=== PATIENT | female | born 1930 | race Caucasian/White ===

== ENCOUNTER → 2016-10-24 | Outpatient (CLI) | payer OTHER, MEDICARE ==
[2016-10-24 17:15] LABS: BUN/CREATININE RATIO 32.72 (6-20); CALCIUM 10.2 mg/dL (8.7-10.7); CREATININE 1.1 mg/dL (0.50-1.20); POTASSIUM 4.2 meq/L (3.8-5.2)
== END ==
LOC: LAB 09:29
DX: I10 Essential (primary) hypertension (principal)
CPT/HCPCS: 80048

== ENCOUNTER 2016-10-30 12:11 | Emergency (ER) | payer OTHER, MEDICARE ==
[2016-10-30] MEDS ORDERED: Sodium Chloride 0.9% 1,000 ML PRIMARY IV ONE (12:29)
[2016-10-30] MEDS ORDERED: NORMAL SALINE 10 ML SYRINGE FLUSH IVP PRN (12:29)
--- NOTE | 2016-10-30 12:45 | EKG ---
[address] [address] Measurements Intervals [place] Rate: 63 P: 107 W[place]: 169 QRS: 219 QRSD: 84 T: 79 QT: 445 QTc: 453 Interpretive Statements SINUS RHYTHM INDETERMINATE AXIS LOW QRS VOLTAGE IN EXTREMITY LEADS [QRS DEFLECTION < 0.5 mV IN LIMB LEADS] LEFT POSTERIOR FASCICULAR BLOCK [QRS AXIS > 109, INFERIOR Q] [email or web address]
[2016-10-30 12:46] LABS: BASOPHILS # (AUTO) 0.02 10*3/UL; BASOPHILS % (AUTO) 0.2 % (0-1); EOSINOPHILS % (AUTO) 0.7 % (0-8); HEMATOCRIT 44.3 % (37.0-47.0); HEMOGLOBIN 14.7 g/dL (12.0-16.0); IMM GRAN % (AUTO) 0.2 % (0-5); IMM GRAN# (AUTO) 0.02 10*3/UL; LYMPHOCYTES # (AUTO) 2.29 10*3/uL; LYMPHOCYTES % (AUTO) 21.1 % (10-50); MEAN CORPUSCULAR HEMOGLOBIN 28.7 PG (27-31); MEAN CORPUSCULAR HGB CONC 33.2 g/dL (33-37); MEAN PLATELET VOLUME 10.2 FL (7.4-12.2); MONOCYTES # (AUTO) 0.99 10*3/UL (0.3-0.8); MONOCYTES % (AUTO) 9.1 % (5-15); NEUTROPHILS # (AUTO) 7.43 10*3/UL; NEUTROPHILS % (AUTO) 68.7 % (50-80); RDW COEFFICIENT OF VARIATION 14.1 % (11.5-14.5); RED BLOOD COUNT 5.12 10^6/uL (4.20-5.40); WHITE BLOOD COUNT 10.83 10^3/uL (4.8-10.8)
[2016-10-30 12:53] LABS: ASPARTATE AMINO TRANSFERASE 74 IU/L (8-39); BILIRUBIN,TOTAL 0.7 mg/dL (0.3-1.2); BLOOD UREA NITROGEN 36 mg/dL (7-22); BUN/CREATININE RATIO 27.69 (6-20); CALCIUM 10.1 mg/dL (8.7-10.7); CHLORIDE 93 meq/L (98-112); CREATININE 1.3 mg/dL (0.50-1.20); GLUCOSE 135 mg/dL (78-110); PLATELET MORPHOLOGY COMMENT NORMAL MORPHOLOGY (NORM); POTASSIUM 4.5 meq/L (3.8-5.2); SODIUM 137 meq/L (135-145); TOTAL PROTEIN 7.4 g/dL (6.1-8.0)
[2016-10-30 13:04] LABS: LACTATE 0.8 MMOL/L (0.70-2.10); MAGNESIUM 1.9 mg/dL (1.6-2.4)
[2016-10-30 13:06] LABS: C-REACTIVE PROTEIN < 0.5 mg/dL (0.0-0.9)
[2016-10-30 13:13] VITALS: TEMP 97
--- NOTE | 2016-10-30 14:02 | PDOC ---
General Adult HPI - General Chief Complaint: General Medical Stated Complaint: "CHECKED OUT FOR MINUTE" Date Seen by Provider: 10/30/16 Time Seen by Provider: 12:25 Source: POSITIVE: Patient Exam Limitations: POSITIVE: No limitations Nurse's Notes Reviewed & Considered: Yes - History of Present Illness Initial Comment: The patient is an 86-year-old female who presents to the emergency department with lightheadedness. She apparently was at [facility] when she became very lightheaded. Passerby stated that she appeared to be awake with her eyes open however she would not respond. She did not pass out completely. Subsequently EMS was called. On arrival ultrasound specialist found the patient to be awake however when they tried to stand her up her blood pressure dropped into the 50s and she became very lightheaded. An IV was established and a fluid bolus was started in route. On arrival the patient states she is feeling better. She still feels a little bit weak. She denies any headache, change in vision, numbness or weakness in her extremities other than generalized weakness in her legs. She does not have any chest pain or shortness of breath. She does report that she has been feeling lightheaded recently especially with standing. She is currently being treated with fluconazole for treatment of thrush. In addition review of her chart reveals that her hydrochlorothiazide had been discontinued secondary to hyponatremia. She subsequently had developed leg edema and was started on Lasix and potassium. The edema has improved significantly. She did have blood work done approximately a week ago. She denies any fevers or chills , nausea vomiting, abdominal pain, urinary symptoms or any other associated complaints. Have you received a tetanus shot in the past 10 years?: Unknown - Patient Home Medications Home Medications: Home Medications Aspirin 81 mg ORAL QD #30 tab 06/29/12 Multivitamin [Multivitamins] 2 each PO DAILY #60 tab 02/03/14 Cyanocobalamin (Vitamin B-12) [B-12] 2 tab PO DAILY #180 tab 01/03/15 Phenazopyridine HCl [Azo] 2 tab PO QD #60 tab 08/01/15 Enalapril Maleate 1 unit PO BID #180 tab 09/18/15 Promethazine HCl 1 unit PO Q4-6H #25 tab 11/20/15 Carvedilol 1 unit ORAL BID #180 tab 01/01/16 Furosemide [Lasix] 1 tab PO QD #30 tab 10/10/16 Potassium Chloride 1 cap PO QD #30 cap 10/10/16 Cholecalciferol (Vitamin D3) [Vitamin D3] 1 cap PO QD #30 cap 10/30/16 Esomeprazole Magnesium [Nexium] 20 mg PO DAILY 10/30/16 Fluticasone/Salmeterol [Advair Hfa] 2 puff INH BID #3 puff 10/30/16 - Patient Allergies Allergies/Adverse Reactions: Allergies Allergy/AdvReac Type Severity Reaction Status Date / Time naproxen sodium [From Aleve] Allergy Severe Anaphylaxis Verified 10/30/16 12:27 Penicillins Allergy Severe Anaphylaxis Verified 10/30/16 12:27 sulfamethoxazole AdvReac Intermediate YEAST Verified 10/30/16 12:27 [From ] INFECTION trimethoprim [From ] AdvReac Intermediate YEAST Verified 10/30/16 12:27 INFECTION Past Medical History - heen HEENT History: Denies History Cardiovascular History: Hypertension, Syncope, Other (please comment) Additional Cardiovasular History: HX HYPONATREMIA. DENIES CHF BUT TAKES LASIX FOR EDEMA Respiratory History: Other (please comment) Additional Respiratory History: TOBACCO USE Gastrointestinal History: Other (please comment) Additional Gastrointestinal History: APPY Genitourinary History: Denies History Endocrine History: Denies History Musculoskeletal History: Denies History, Other (please comment) Prosthesis or Implant: No Additional Musculoskeletal History: BACK SURGERY Neurological History: Denies History Blood Disorders: Denies History Psychiatric History: Denies History Cancer History: Denies History In Past Year Been Physically Harmed or Verbally Threatened: No History of MDRO: No Tobacco Use: Current Every Day Smoker Alcohol Use: None Substance Use Type: None Previous Surgical History: Yes Type / Date of Surgery: APPY. BACK Anesthesia Reactions: No Significant Family History: No pertinent family hx Past Medical History Reviewed: Reviewed - No Changes ROS - Limitations ROS Limitations: No Limitations Constitution: DENIES: Chills, Fever Cardiovascular: DENIES: Chest Pain, Heart Racing, Heart Palpitations Respiratory: REPORTS: Denies Resp Symptoms Neurological: REPORTS: Dizziness. DENIES: Headache, Numbness, Weakness Gastrointestinal: REPORTS: Nausea. DENIES: Abdominal Pain, Vomitting, Diarrhea Endocrine: REPORTS: Fatigue Musculoskeletal: REPORTS: Denies MS Symptoms Genitourinary: REPORTS: Denies Symptoms Eyes: REPORTS: Denies Symptoms ENT: REPORTS: Denies Symptoms Skin: DENIES: Rash General Adult Exam - General Appearance General Appearance: POSITIVE: Alert, Cooperative, No Acute Distress - HEENT HEENT: POSITIVE: Head Inspection Nml, Eyes Inspection Nml, Ears Inspection Nml, Pharynx Inspect. Nml - Neck Neck: POSITIVE: Normal Inspection. 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 As Tested, Motor Normal, Sensation Normal, Other (No focal neurologic deficits) General Adult Progress - Results Reviewed by me Lab Results Reviewed: Yes Lab Results:: Laboratory Results 10/30/16 10/30/16 Range/Units 12:00 12:11 WBC 10.83 H (4.8-10.8) 10^3/uL RBC 5.12 (4.20-5.40) 10^6/uL Hgb 14.7 (12.0-16.0) g/dL Hct 44.3 (37.0-47.0) % MCV 86.5 (81-99) FL MCH 28.7 (27-31) PG MCHC 33.2 (33-37) g/dL RDW Std Deviation 44.2 (39-50) fL RDW Coeff of Maria M 14.1 (11.5-14.5) % Plt Count 298 (140-350) 10*3/uL MPV 10.2 (7.4-12.2) FL Immature Gran % (Auto) 0.2 (0-5) % Neut % (Auto) 68.7 (50-80) % Lymph % (Auto) 21.1 (10-50) % [place] % (Auto) 9.1 (5-15) % Eos % (Auto) 0.7 (0-8) % Baso % (Auto) 0.2 (0-1) % Immature Gran # (Auto) 0.02 10*3/UL Neut # (Auto) 7.43 10*3/UL Lymph # (Auto) 2.29 10*3/uL [place] # (Auto) 0.99 H (0.3-0.8) 10*3/UL Eos # (Auto) 0.08 10*3/UL Baso # (Auto) 0.02 10*3/UL WBC Morphology Comment Normal morphology (NORM) Plt Morphology Comment Normal morphology (NORM) RBC Morph Comment Normal morphology (NORM) D-Dimer 0.36 (0.00-0.59) mg/L Sodium 137 (135-145) meq/L Potassium 4.5 (3.8-5.2) meq/L Chloride 93 L (98-112) meq/L Carbon Dioxide 30 (23-33) meq/L Anion Gap 14 (5-20) BUN 36 H (7-22) mg/dL Creatinine 1.3 H (0.50-1.20) mg/dL 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 BUN/Creatinine Ratio 27.69 H (6-20) Glucose 135 H (78-110) mg/dL Calculated Osmolality 293.0 H (267-292) mOsm/kg Lactic Acid 0.8 (0.70-2.10) MMOL/L Calcium 10.1 (8.7-10.7) mg/dL Magnesium 1.9 (1.6-2.4) mg/dL Total Bilirubin 0.7 (0.3-1.2) mg/dL AST 74 H (8-39) IU/L ALT 32 (9-52) IU/L Alkaline Phosphatase 72 (38-126) IU/L Troponin I < 0.012 (< 0.040) ng/mL C-Reactive Protein < 0.5 (0.0-0.9) mg/dL Total Protein 7.4 (6.1-8.0) g/dL Albumin 4.5 (3.5-4.8) g/dL Globulin 2.9 (2.50-4.10) g/dL Albumin/Globulin Ratio 1.50 (1.3-2.0) mg/g EKG Interpreted/Reviewed By Me:: Yes EKG Interpretation:: POSITIVE: Normal Sinus Rhythm, Normal Rate, Normal Intervals, Other (No acute ST segment or T-wave changes.) - Patient's Progress MDM / ED Course: Orthostatic vital signs were checked on arrival to the ER after the patient had received approximately 200 mL of normal saline. She continues to be orthostatic and her blood pressure dropped from the 130s down to the 80s systolic. She did not really have any significant change in pulse although she is on a beta dariana. After administration of 1 L of normal saline the patient was feeling better. Repeat orthostatics revealed no drop in systolic blood pressure and actually it went up slightly. She states that she still feels a little bit weak however overall feels much better. The remainder of her workup is essentially unremarkable except for evidence of dehydration with increased BUN/creatinine. Her electrolytes are otherwise normal. At this point it seems most likely that she may have become hypovolemic in part because of the recent addition of Lasix. She states that the edema in her legs has improved. She was advised to discontinue the Lasix as well as the potassium for now. She is advised to take Lasix in combination with potassium only if she develops increased leg edema as needed. She was advised return to the emergency room if she developed any further lightheadedness, any worsening or change in symptoms. She'll follow-up with primary care in 7-10 days. - Consult Counseled: POSITIVE: Patient, Family, RE: Lab Results, RE: DX, RE: Need for F/U Patient Care Time - Estimated PCT Patient Care Time (In Minutes): 30 Vital Signs - Recent Vital Signs Vital Signs: Vital Signs (Last 8 hours) Temp Pulse Pulse Pulse Pulse Resp BP 10/30/16 13:49 66 82 77 116/57 10/30/16 12:45 66 16 10/30/16 12:25 70 65 77 137/72 10/30/16 12:20 97 F 69 18 BP BP BP Pulse Ox 10/30/16 13:49 120/70 127/63 10/30/16 12:45 123/65 94 10/30/16 12:25 114/55 87/58 10/30/16 12:20 116/56 94 - VS Reviewed Vital Signs Reviewed: Yes Discharge Clinical Impression: Hypovolemia, Orthostatic hypotension Condition: Stable Patient Instructions Given at Discharge: Dehydration (ED), Near Syncope (ED) Additional Instructions: The lightheadedness and nearly passing out is likely related to being dehydrated. This is likely at least partially caused I the Lasix which is a water pill. Your blood pressure is significantly improved after administration of fluids. Would recommend rest and hydration today. You should discontinue the Lasix and potassium and take this combination only as needed if you develop swelling in your legs. Recommend returning to the emergency room if he develops further lightheadedness or passing out, chest pain, any worsening or change in symptoms. Recommend follow-up with primary care in 7-10 days. Follow Up With: NONE,NONE [Primary Care Provider] -
[2016-10-30 15:09] VITALS: RESP 16
== END 2016-10-30 14:15 | disposition home or self-care (01) ==
LOC: ER 12:11
DX: E86.1 Hypovolemia (principal); I95.1 Orthostatic hypotension; R42 Dizziness and giddiness; R11.0 Nausea
CPT/HCPCS: 80053; 82948; 83605; 83735; 84484; 85025; 85379; 86140; 93005; 93010; 96360; 96361; 99283

== ENCOUNTER → 2016-11-07 | Outpatient (CLI) | payer OTHER, MEDICARE | LOC: MMPC 11:11 | DX: I95.1 Orthostatic hypotension (principal); J44.9 Chronic obstructive pulmonary disease, unspecified; E55.9 Vitamin D deficiency, unspecified; I10 Essential (primary) hypertension; K21.9 Gastro-esophageal reflux disease without esophagitis; F17.219 Nicotine dependence, cigarettes, with unspecified nicotine-induced disorders | CPT/HCPCS: 99213; G0463 ==

== ENCOUNTER → 2017-01-01 | Outpatient (CLI) | payer OTHER, MEDICARE | LOC: MMPC 09:00 | DX: I95.1 Orthostatic hypotension (principal); J44.9 Chronic obstructive pulmonary disease, unspecified; F17.219 Nicotine dependence, cigarettes, with unspecified nicotine-induced disorders; I10 Essential (primary) hypertension; E55.9 Vitamin D deficiency, unspecified; R49.0 Dysphonia | CPT/HCPCS: 99213; G0463 ==

== ENCOUNTER → 2017-02-12 | Outpatient (CLI) | payer OTHER, MEDICARE | LOC: SLEEP LAB 19:57 | DX: G47.33 Obstructive sleep apnea (adult) (pediatric) (principal); G47.34 Idiopathic sleep related nonobstructive alveolar hypoventilation | CPT/HCPCS: 95811 ==

== ENCOUNTER → 2017-03-20 | Outpatient (CLI) | payer OTHER, MEDICARE ==
--- NOTE | 2017-03-20 14:57 | DI ---
XR CXR 2VW PA/LAT,03/20/2017 1:36 PM: Clinical History: Chronic obstructive pulmonary disease. Previous Exam: None at this facility. Findings: PA and lateral views of the chest are obtained, and demonstrate increased AP dimension and flattening of hemidiaphragms bilaterally without infiltrate nor effusion. Skeletal structures and the cardiomed iastinum are unremarkable. There is gentle levoscoliosis of lumbar spine at the thoracic lumbar junct ion. There is no infiltrate nor effusion. Impression: Diffuse COPD otherwise unremarkable.
[2017-03-20 15:00] LABS: BASOPHILS # (AUTO) 0.01 10*3/UL; BASOPHILS % (AUTO) 0.1 % (0-1); EOSINOPHILS # (AUTO) 0.03 10*3/UL; EOSINOPHILS % (AUTO) 0.4 % (0-8); HEMATOCRIT 42.4 % (37.0-47.0); LYMPHOCYTES # (AUTO) 1.26 10*3/uL; MEAN CORPUSCULAR HEMOGLOBIN 27.9 PG (27-31); MEAN CORPUSCULAR VOLUME 84.6 FL (81-99); MEAN PLATELET VOLUME 9.7 FL (7.4-12.2); MONOCYTES # (AUTO) 0.77 10*3/UL (0.3-0.8); MONOCYTES % (AUTO) 9.4 % (5-15); NEUTROPHILS # (AUTO) 6.15 10*3/UL; NEUTROPHILS % (AUTO) 74.7 % (50-80); PLATELET MORPHOLOGY COMMENT NORMAL MORPHOLOGY (NORM); RBC MORPHOLOGY COMMENT NORMAL MORPHOLOGY (NORM); RED BLOOD COUNT 5.01 10^6/uL (4.20-5.40); WBC MORPHOLOGY COMMENT NORMAL MORPHOLOGY (NORM)
[2017-03-20 18:26] LABS: BUN/CREATININE RATIO 23.33 (6-20); CALCIUM 9.3 mg/dL (8.7-10.7); SERUM ALBUMIN 3.5 g/dL (3.5-4.8)
== END ==
LOC: MOB RAD 13:58
DX: I10 Essential (primary) hypertension (principal); J44.9 Chronic obstructive pulmonary disease, unspecified; R53.1 Weakness; R53.83 Other fatigue; F17.200 Nicotine dependence, unspecified, uncomplicated
CPT/HCPCS: 36415; 71020; 80053; 85025

== ENCOUNTER → 2017-03-21 | Outpatient (CLI) | payer OTHER, MEDICARE ==
[2017-03-21 13:05] LABS: BILIRUBIN,URINE SMALL (NEG); CLARITY,URINE Slightly Cloudy (CLEAR); COLOR,URINE YELLOW; GLUCOSE, URINE (UA) NEGATIVE (NEG); NITRATE,URINE NEGATIVE (NEG); OCCULT BLOOD,URINE NEGATIVE (NEG); PH,URINE 5.5 (5.0-8.5); PROTEIN,URINE 30 mg/dl (NEG)
[2017-03-21 13:13] LABS: RENAL EPITHELIAL CELLS,URINE RARE; SQUAMOUS EPITHELIAL CELL,UR RARE; URINE SAMPLE TYPE CLEAN CATCH URINE
[2017-03-21 13:14] LABS: URINE CRYSTALS RARE
== END ==
LOC: LAB 11:40
DX: R53.83 Other fatigue (principal); I10 Essential (primary) hypertension; F17.200 Nicotine dependence, unspecified, uncomplicated
CPT/HCPCS: 81001

== ENCOUNTER → 2017-03-26 | Outpatient (CLI) | payer OTHER, MEDICARE ==
--- NOTE | 2017-03-27 00:02 | DI ---
CT HEAD W/O CONTRAST,03/26/2017 2:10 PM: Clinical History: Weakness. Previous Exam: July 23, 2014 Findings: Multiple helically acquired CT images are obtained through the brain without contrast, and demonstrat e a large hypodense area within the right frontal lobe. There is increased density within this hypode nsity centrally. There is some mild adjacent white matter edema as well. Skeletal structures are unremarkable. The orbits and paranasal sinuses are unremarkable. Impression: Large hypodensity within the right frontal lobe with central poorly circumscribed hyperdensity. This is worrisome for neoplasia and surrounding edema. This could also represent encephalomalacia, or Recommend MRI brain with and without contrast for further evaluation.
== END ==
LOC: CT 14:06
DX: R53.1 Weakness (principal); R53.81 Other malaise; F17.200 Nicotine dependence, unspecified, uncomplicated
CPT/HCPCS: 70450

== ENCOUNTER → 2017-03-27 | Outpatient (CLI) | payer OTHER, MEDICARE | LOC: MMPC 11:11 | DX: R90.0 Intracranial space-occupying lesion found on diagnostic imaging of central nervous system (principal); R49.0 Dysphonia; I10 Essential (primary) hypertension; J44.9 Chronic obstructive pulmonary disease, unspecified; K21.9 Gastro-esophageal reflux disease without esophagitis; E55.9 Vitamin D deficiency, unspecified | CPT/HCPCS: 99212; G0463 ==

== ENCOUNTER 2017-04-03 11:42 | Emergency (ER) | payer OTHER, MEDICARE ==
--- NOTE | 2017-04-03 12:04 | PDOC ---
Seizure HPI - General Chief Complaint: General Medical Stated Complaint: LETHARGY, UNRESPONSIVE EPISODES Date Seen by Provider: 04/03/17 Time Seen by Provider: 11:59 Source: POSITIVE: Patient, Other (Daughter) Exam Limitations: POSITIVE: Clinical condition Nurse's Notes Reviewed & Considered: Yes - History of Present Illness Initial Comments: This elderly 87-year-old female comes in today with an episode of unresponsiveness. Patient had an MRI done earlier today and received a milligram of Ativan prior to the procedure. This was approximately 3 hours ago. 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 She has had previous episodes over the last 2 weeks of becoming unresponsive and drooling. sHe presently appears postictal. Review of systems is unavailable because the patient's postictal state. Body Location Affected: REPORTS: Head Timing: REPORTS: Abrupt Duration: 1/2 hour Severity: Severe Quality: REPORTS: Other (Unresponsiveness) Seizure Began at (time): 11:45 Witnessed Seizure?: Yes Preceding Symptoms/Context (specify in comments): REPORTS: None Character of Seizure(s): REPORTS: Lost Consciousness, Completely Unresponsive Post-ictal Symptoms: REPORTS: Other (Global weakness, confusion, fatigue.) Recently seen/treated/hospitalized: Yes Any Prior Injuries Related to Current Complaint?: No - Patient Home Medications Home Medications: Home Medications Aspirin 81 mg ORAL QD #30 tab 06/29/12 Multivitamin [Multivitamins] 2 each PO DAILY #60 tab 02/03/14 Cyanocobalamin (Vitamin B-12) [B-12] 2 tab PO DAILY #180 tab 01/03/15 Promethazine HCl 1 unit PO Q4-6H #25 tab 11/20/15 Cholecalciferol (Vitamin D3) [Vitamin D3] 1 cap PO QD #30 cap 10/30/16 Enalapril Maleate 1 tab PO BID #180 tab 11/11/16 Carvedilol 1 tab PO BID #180 tab 01/10/17 Fluticasone/Salmeterol [Advair Hfa] 2 puff INH BID #1 puff 03/20/17 Tiotropium [place] [Spiriva] 18 mcg IH DAILY 04/03/17 - Patient Allergies Allergies/Adverse Reactions: Allergies Allergy/AdvReac Type Severity Reaction Status Date / Time naproxen sodium [From Aleve] Allergy Severe Anaphylaxis Verified 04/03/17 12:15 Penicillins Allergy Severe Anaphylaxis Verified 04/03/17 12:15 sulfamethoxazole AdvReac Intermediate YEAST Verified 04/03/17 12:15 [From ] INFECTION trimethoprim [From ] AdvReac Intermediate YEAST Verified 04/03/17 12:15 INFECTION Past Medical History - heen HEENT History: Denies History Cardiovascular History: Hypertension, Syncope, Other (please comment) Additional Cardiovasular History: HX HYPONATREMIA. DENIES CHF BUT TAKES LASIX FOR EDEMA Respiratory History: Other (please comment) Additional Respiratory History: TOBACCO USE Gastrointestinal History: Other (please comment) Additional Gastrointestinal History: APPY Genitourinary History: Denies History Endocrine History: Denies History Musculoskeletal History: Denies History, Other (please comment) Prosthesis or Implant: No Additional Musculoskeletal History: BACK SURGERY Neurological History: Denies History Blood Disorders: Denies History Psychiatric History: Denies History Cancer History: Denies History History of MDRO: No Alcohol Use: None Substance Use Type: None Previous Surgical History: Yes Type / Date of Surgery: APPY. BACK Anesthesia Reactions: No Significant Family History: No pertinent family hx ROS - Limitations ROS Limitations: Clinical Condition (Further review of systems is unavailable because the patient's unresponsive postictal state.) Seizure Exam - General Appearance General Appearance: POSITIVE: No Acute Distress, Lethargic, Confused (post-ictal ) - HEENT HEENT: POSITIVE: Head Inspection Nml, Eyes Inspection Nml, Ears Inspection Nml, Nose Inspection Nml, Oral/Dental Inspect. Nml, Pharynx Inspect. Nml, PERRL, EOMI - Pupil Size Pupil Size: 4 mm: Bilateral - Neck Neck: POSITIVE: Non Tender, Neck Supple, Trachea Midline, Nexus Criteria Negative - Respiratory Respiratory: POSITIVE: Chest Non Tender, No Ecchymosis, Breath Sounds Normal, No Respiratory Distress - Cardiovascular Cardiovascular: POSITIVE: Regular Rate and Rhythm, Heart Sounds Normal, No Murmur, No Gallop, No JVD - Abdomen Abdomen: Soft: (All Quadrants), Normal Bowel Sounds: (All Quadrants), Denies Tenderness: (All Quadrants), No Splenomegaly: (All Quadrants), No Hepatomegaly: (All Quadrants), No Guarding: (All Quadrants), No Rebound: (All Quadrants), No Palpable Pulse: (All Quadrants), No Palpabale Mass: (All Quadrants), No Distention: (All Quadrants), No Rigidity: (All Quadrants) - Skin Skin: POSITIVE: Intact, Normal For Race, Warm, Dry, No Rash - Extremities Extremity: Non-Tender: (All Extremities), Normal ROM: (All Extremities), Normal Inspection: (All Extremities) - Observed Seizure Activity Observed Seizure Activity in ED: POSITIVE: Generalized - Neuro / Psych Higher Functions: POSITIVE: Confused, Disoriented to Place, Disoriented to Time , Slurred Speach Cranial Nerves: POSITIVE: Normal As Tested, No Evidence of Acute CVA Cerebellar: POSITIVE: Normal As Tested Sensorimotor: POSITIVE: No Motor Deficits, No Sensory Deficits, Reflexes Normal , Symmetrical, Weakness Reflexes: Patellar (R): 3+, Patellar (L): 3+, Radial (R): 3+, Radial (L): 3+ Seizure Progress - Results Reviewed by me Xrays/CTs/US Reviewed by me: Yes Discussed with Radiologist: Yes Lab Results Reviewed: Yes Lab Results:: Laboratory Results 04/03/17 04/03/17 04/03/17 Range/Units 12:00 12:18 12:30 WBC 11.64 H (4.8-10.8) 10^3/uL RBC 4.96 (4.20-5.40) 10^6/uL Hgb 13.9 (12.0-16.0) g/dL Hct 41.9 (37.0-47.0) % MCV 84.5 (81-99) FL MCH 28.0 (27-31) PG MCHC 33.2 (33-37) g/dL RDW Std Deviation 43.6 (39-50) fL RDW Coeff of Maria M 14.3 (11.5-14.5) % Plt Count 264 (140-350) 10*3/uL MPV 9.0 (7.4-12.2) FL Immature Gran % (Auto) 0.4 (0-5) % Neut % (Auto) 79.3 (50-80) % Lymph % (Auto) 11.3 (10-50) % [place] % (Auto) 7.7 (5-15) % Eos % (Auto) 1.0 (0-8) % Baso % (Auto) 0.3 (0-1) % Immature Gran # (Auto) 0.05 10*3/UL Neut # (Auto) 9.23 10*3/UL Lymph # (Auto) 1.31 10*3/uL [place] # (Auto) 0.90 H (0.3-0.8) 10*3/UL Eos # (Auto) 0.12 10*3/UL Baso # (Auto) 0.03 10*3/UL WBC Morphology Comment Normal morphology (NORM) Plt Morphology Comment Normal morphology (NORM) RBC Morph Comment Normal morphology (NORM) VBG pH 7.44 H (7.32-7.42) VBG pCO2 41 L (45-55) mmHg VBG HCO3 28 H (22-26) mmol/L VBG Base Excess 4 H (-2-2) MMOL/L Sodium 132 L (135-145) meq/L Potassium 3.1 L (3.8-5.2) meq/L Chloride 93 L (98-112) meq/L Carbon Dioxide 29 (23-33) meq/L Anion Gap 10 (5-20) BUN 24 H (7-22) mg/dL Creatinine 0.9 (0.50-1.20) mg/dL 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 (>60 ml/min/1.73m(2)) BUN/Creatinine Ratio 26.66 H (6-20) Glucose 98 (78-110) mg/dL Calculated Osmolality 277.0 (267-292) mOsm/kg Lactic Acid 1.2 (0.70-2.10) MMOL/L Calcium 9.0 (8.7-10.7) mg/dL Magnesium 1.9 (1.6-2.4) mg/dL Total Bilirubin 0.7 (0.3-1.2) mg/dL AST 20 (8-39) IU/L ALT 29 (9-52) IU/L Alkaline Phosphatase 54 (38-126) IU/L Troponin I < 0.012 (< 0.040) ng/mL C-Reactive Protein 2.1 H (0.0-0.9) mg/dL Total Protein 6.2 (6.1-8.0) g/dL Albumin 3.6 (3.5-4.8) g/dL Globulin 2.7 (2.50-4.10) g/dL Albumin/Globulin Ratio 1.30 (1.3-2.0) mg/g Ur Collection Type Cath specimen Urine Color Yellow Urine Clarity Slightly cloudy (CLEAR) Urine pH 6.0 (5.0-8.5) Ur Specific [place] 1.025 (1.005-1.030) Urine Protein 100 (NEG) mg/dl Urine Glucose (UA) Negative (NEG) mg/dL Urine Ketones Negative (NEG) Urine Occult Blood Small H (NEG) Urine Nitrate Positive H (NEG) Urine Bilirubin Small (NEG) Urine Urobilinogen 1.0 (0.2) EU/dL Ur Leukocyte Esterase Trace (NEG) Urine RBC 0-2 (NONE) /hpf Urine WBC 25-50 (NONE) Ur Squamous Epith Cells None (NONE) Ur Renal Epithelial Cell None (NONE) Urine Crystals None Urine Bacteria Many (NONE) Urine Casts None (NONE) Urine Mucus None (NONE) Urine Trichomonas None (NONE) Urine Yeast None (NONE) Ur Culture Indicated? Culture set EKG Interpretation:: POSITIVE: Normal Sinus Rhythm - Patient's Progress Pain Medication Addressed: POSITIVE: Not Applicable Re-Examine Time:: 13:50 Status: POSITIVE: Improved (Patient has improved. She is now alert and oriented to person place and time, sitting up in bed taking nourishment and fluids.) MDM / ED Course: Patient was examined, an IV started, blood drawn and sent to the lab for studies , EKG was obtained. Findings: Urinalysis shows nitrite positive bacteria. CBC shows a white count elevated to just over 11. Review of her MRI obtained just prior to admission to the emergency room showed necrotic frontal lobe mass. No bleed was appreciated. 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 #2 Hypoxia. #3 urinary tract infection, nitrite positive. Plan: Discharge home on Omnicef. Home oxygen to maintain oxygen saturations greater than 89%. Follow-up with primary care physician. Keep appointment with neurosurgery. Patient Care Time - Estimated PCT Patient Care Time (In Minutes): 45 Vital Signs - VS Reviewed Vital Signs Reviewed: Yes Discharge Clinical Impression: Seizure, Hypoxia, Urinary tract infection Discharge Disposition: Discharged to Home Condition: Stable Patient Instructions Given at Discharge: New-Onset Seizure in Adults (ED), Hypoxia (ED), Urinary Tract Infection in Women (ED)
[2017-04-03 12:09] LABS: BASOPHILS # (AUTO) 0.03 10*3/UL; BASOPHILS % (AUTO) 0.3 % (0-1); EOSINOPHILS # (AUTO) 0.12 10*3/UL; HEMATOCRIT 41.9 % (37.0-47.0); HEMOGLOBIN 13.9 g/dL (12.0-16.0); LYMPHOCYTES # (AUTO) 1.31 10*3/uL; MEAN CORPUSCULAR HGB CONC 33.2 g/dL (33-37); MEAN CORPUSCULAR VOLUME 84.5 FL (81-99); MONOCYTES % (AUTO) 7.7 % (5-15); NEUTROPHILS # (AUTO) 9.23 10*3/UL; NEUTROPHILS % (AUTO) 79.3 % (50-80); RED BLOOD COUNT 4.96 10^6/uL (4.20-5.40)
--- NOTE | 2017-04-03 12:09 | EKG ---
[address] [place] [address] Measurements Intervals [place] Rate: 82 P: 77 MD: 159 QRS: -49 QRSD: 76 T: 73 QT: 395 QTc: 433 Interpretive Statements SINUS RHYTHM SLOW R WAVE PROGRESSION V1-V3, CANNOT R/O OLD ANTEROSEPTAL OR MARKED LEFT AXIS DEVIATION Compared to ECG 10/30/2016 12:47:13 Left-axis deviation now present T-wave abnormality no longer present Possible ischemia no longer present Electronically Signed On 04-03-17 15:42:47 MDT by Drawin Duggan [email or web address]
[2017-04-03 12:12] LABS: PLATELET MORPHOLOGY COMMENT NORMAL MORPHOLOGY (NORM); RBC MORPHOLOGY COMMENT NORMAL MORPHOLOGY (NORM); WBC MORPHOLOGY COMMENT NORMAL MORPHOLOGY (NORM)
[2017-04-03 12:22] LABS: BUN/CREATININE RATIO 26.66 (6-20); C-REACTIVE PROTEIN 2.1 mg/dL (0.0-0.9); MAGNESIUM 1.9 mg/dL (1.6-2.4); SERUM ALBUMIN 3.6 g/dL (3.5-4.8)
[2017-04-03 12:25] LABS: VENOUS PH 7.44 (7.32-7.42)
[2017-04-03 12:34] LABS: BILIRUBIN,URINE SMALL (NEG); CLARITY,URINE Slightly Cloudy (CLEAR); COLOR,URINE YELLOW; GLUCOSE, URINE (UA) NEGATIVE (NEG); NITRATE,URINE POSITIVE (NEG); OCCULT BLOOD,URINE SMALL (NEG); PROTEIN,URINE 100 mg/dl (NEG)
[2017-04-03 12:37] LABS: BACTERIA,URINE MANY; RBC,URINE 0-2 /hpf; URINE SAMPLE TYPE CATH SPECIMEN; WBC,URINE 25-50
[2017-04-03] MEDS ORDERED: cefTRIAXone Inj 2 GM in Sodium Chloride 0.9% 100 ML IV ONE (12:39)
--- NOTE | 2017-04-03 13:01 | DI ---
XR CXR 1VW,04/03/2017 11:55 AM: Clinical History: Unresponsive Previous Exam: March 20, 2017 Findings: A single frontal radiograph of the chest is obtained, and demonstrate clear lungs. The cardiomediasti num and bony thorax are unremarkable. Impression: Normal chest
[2017-04-03] MEDS ORDERED: Sodium Chloride 0.9% 1,000 ML PRIMARY IV ONE (13:29)
[2017-04-03 14:07] VITALS: RESP 16; TEMP 98.9
[2017-04-03] MEDS ORDERED: DEXAMETHASONE PF 10 MG/1 ML VIAL IVP ONE (14:29)
== END 2017-04-03 15:42 | disposition home or self-care (01) ==
LOC: ER 11:42
DX: G40.802 Other epilepsy, not intractable, without status epilepticus (principal); R09.02 Hypoxemia; N39.0 Urinary tract infection, site not specified; R40.2442 Other coma, without documented Glasgow coma scale score, or with partial score reported, at arrival to emergency department; R90.0 Intracranial space-occupying lesion found on diagnostic imaging of central nervous system
CPT/HCPCS: 36415; 71010; 80053; 81001; 81003; 82803; 83605; 83735; 84484; 85025; 86140; 87040; 87077; 87088; 87186 ×2; 93005; 93010; 96361; 96365; 96367; 96375; 99284 ×2; J1953; 70553; J0696; J1100; J7030; J7050

== ENCOUNTER → 2017-04-03 | Outpatient (CLI) | payer OTHER, MEDICARE ==
--- NOTE | 2017-04-03 12:10 | DI ---
MRI BRAIN W/WO NORMA,04/03/2017 9:59 AM: Clinical History: Intracranial mass Previous Exam: March 26, 2017 Findings: Multiplanar MR images are obtained through the brain both before and after the intravenous administra tion of 10 mL of ProHance, and demonstrate a large peripherally enhancing mass within the right front al lobe measuring 5.9 x 2.9 x 4.3 cm causing some leftward and downward displacement of the right tem poral horn and corpus callosum. The central portion of the mass demonstrates increased T2 and FLAIR signal, and some areas of restric lucius diffusion around the periphery and a few scattered areas within the central portion of the mass c orresponding with the areas of highest density on the CT scan. The major vascular flow voids are unremarkable. The intraorbital structures are also unremarkable. Th e paranasal sinuses are unremarkable. The cerebellopontine angles and internal auditory canals are wi thin normal limits. There are some scattered areas of increased FLAIR and T2 signal within the periventricular white maddie er most consistent with small vessel ischemic changes. The cerebellar tonsils extend to the level of the foramen magnum without any significant extension be low. The visualized portions of the spinal cord are unremarkable. Signal within the clivus is normal. The parasellar region is unremarkable. Impression: 5.9 x 2.9 x 4.3 cm peripherally enhancing mass within the right frontal lobe causing some leftward ma ss effect. 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 Other considerations include an abscess, a single large metastasis, or a subacute infarct although th flaquita are considered less likely. MRI spectroscopy or tissue sampling will be helpful for further nnamdi cterization.
== END ==
LOC: MRI 09:55
DX: R90.0 Intracranial space-occupying lesion found on diagnostic imaging of central nervous system (principal)
CPT/HCPCS: 70553

== ENCOUNTER → 2017-04-16 | Outpatient (CLI) | payer OTHER, MEDICARE ==
--- NOTE | 2017-04-16 14:32 | DI ---
CT SCAN OF THE NECK WITH IV CONTRAST, 04/16/2017 1:41 PM : Clinical History: Cancer evaluation. The patient has a cystic appearing mass of the right frontal lob e. Previous Exam: None at this facility. Scans are obtained from below the sternal notch to the petrous pyramids with IV contrast. Sagittal an d coronal images are generated. 30 ml of Isovue 300 was injected IV. The cervical vertebral bodies are of normal height and size. No blastic or lytic bone lesion is ident ified. Severe disc space narrowing is present from C3-4 through C6-7. The C2-3 disc space is normal i n height. The carotid and vertebral arteries are normal. There are no soft tissue masses on either si de. No lymphadenopathy is identified. The thyroid gland has a 5 mm low-density lesion in the midporti on of the right lobe. The submandibular glands and the parotid glands are normal. READIN. No soft tissue mass is visualized in the neck or in the oral or pharyngeal cavities. There is no adenopathy or evidence of a blastic or lytic bone lesion. 2. There is a 5 mm low-density nodule in the body of the right lobe of the thyroid gland.
--- NOTE | 2017-04-16 16:09 | DI ---
CT ABDOMEN SCAN WITH IV CONTRAST, 04/16/2017 1:03 PM : Clinical History: G93.9. The patient has a cystic mass lesion in the right frontal lobe that either r epresents a primary or metastatic brain tumor. Evaluation for a primary tumor site. Previous Exam: None at this facility. Scans are performed from the lower lung bases through the liver and kidneys with IV contrast. This is the same bolus of contrast used for the CT scan of the chest. The lung bases are clear. The liver is normal. There is a laminated calcified gallstone measuring isadora roximately 15 mm in diameter but there is no evidence of edema of the gallbladder wall to indicate ac bishop paiute cholecystitis. There is no abnormality of the spleen, pancreas, and adrenal glands. Both kidneys are normal in size, shape, position and contour. There is no hydronephrosis or hydroureter. No renal or ureteral calculi are present. There are no abnormal retrocrural or periaortic nodes. No ascites is present. READING: Cholelithiasis without evidence of cholecystitis. The scans are otherwise normal. CT PELVIS SCAN WITH IV CONTRAST, 04/16/2017 1:03 PM: Clinical History: See above. Previous Exam: None at this facility. Scans are performed from just superior to the umbilicus to the symphysis pubis with IV contrast. This is the same bolus of contrast used for the CT scans of the chest and abdomen. Scans through the lower abdomen and pelvis show no masses or abnormal fluid collections. There is no adenopathy. The appendix is not identified with certainty but there is no inflammatory mass either in the cecum or in the right lower quadrant. The small bowel, terminal ileum, and ileocecal valve are n ormal. The colon is also normal. There are no hernias. The uterus is atrophic and there is a high den sity 20 mm nodule in the anterior aspect of the fundus probably representing a fibroid. Near the ovar y is visualized with certainty. There is osteoporosis. READING: Normal CT scan of the pelvis.
--- NOTE | 2017-04-16 16:21 | DI ---
CT CHEST SCAN WITH IV CONTRAST, 04/16/2017 12:53 PM : Clinical History: G 93.9. The patient has a cystic mass lesion in the right frontal lobe consistent w ith either a primary or metastatic lesion. Evaluation for site of a primary tumor. Previous Exam: None at this facility. Scans are performed from the base of the neck to the level of the adrenal glands with contrast. 45 ml of Isovue 300 was injected IV. The base of the neck and thoracic inlet are normal except for the previously identified 5 mm low-dens ity nodule in the right lobe of the thyroid gland. There are no abnormal axillary, supraclavicular, m ediastinal, or hilar nodes. The heart is normal. Calcifications are present in the left mainstem, the LAD, and the right coronary artery. There is no acute infiltrate or effusion. There is a 6 mm noncal cified nodule that is pleural-based posteriorly in the superior segment of the right lower lobe. Ther e are 2 densities that are actually saucer-shaped located in the left upper lobe in the anterior segm ent laterally and the second lesion is just lateral to the mediastinal fat near the sternum. Both of these lesions measure about 6 mm in diameter but are only 2 mm in height. These can either represent true nodules or more likely some postinflammatory scarring. There is a small 2-3 mm nodule in the ape x of the left upper lobe. READIN. There are nodules as described above in the left upper lobe and right lower lobe along with some "saucer-shaped" lesions in the left upper lobe. These latter lesions are more likely to represent pos t inflammatory scarring. 2. There is a roughly 5 mm nonfunctioning nodule in the right lobe of the thyroid gland. 3. Coronary artery disease with calcifications in the left mainstem, the LAD, and the right coronary artery.
== END ==
LOC: CT 12:46
PROVIDERS: ATTEND Neurological Surgery
DX: C71.9 Malignant neoplasm of brain, unspecified (principal); J44.9 Chronic obstructive pulmonary disease, unspecified; I10 Essential (primary) hypertension; I25.10 Atherosclerotic heart disease of native coronary artery without angina pectoris; K80.20 Calculus of gallbladder without cholecystitis without obstruction; E55.9 Vitamin D deficiency, unspecified; K21.9 Gastro-esophageal reflux disease without esophagitis; R31.9 Hematuria, unspecified
CPT/HCPCS: 70491; 71260; 74177; 99213; G0463

== ENCOUNTER → 2017-05-02 | Outpatient (CLI) | payer OTHER, MEDICARE ==
[2017-05-02 11:05] LABS: BACTERIA,URINE MANY; BILIRUBIN,URINE NEGATIVE (NEG); CLARITY,URINE Slightly Cloudy (CLEAR); COLOR,URINE YELLOW; GLUCOSE, URINE (UA) NEGATIVE (NEG); NITRATE,URINE POSITIVE (NEG); OCCULT BLOOD,URINE NEGATIVE (NEG); PH,URINE 6.5 (5.0-8.5); PROTEIN,URINE NEGATIVE (NEG); RBC,URINE 0 /hpf; SQUAMOUS EPITHELIAL CELL,UR FEW; URINE SAMPLE TYPE CLEAN CATCH URINE
== END ==
LOC: LAB 10:34
DX: R30.0 Dysuria (principal); R82.99 Other abnormal findings in urine
CPT/HCPCS: 81001; 87077; 87088; 87186